=== PATIENT | male | born 1975 | race Caucasian/White ===

== ENCOUNTER 2017-03-09 11:07 | Inpatient (IN) | payer MEDICAID ==
[~2017-03-09] VITALS: Ht 167.6 cm; Wt 82.3 kg
[2017-03-09 11:27] LABS: GLUCOSE,POINT OF CARE 99 MG/DL (70-110)
[2017-03-09] MEDS ORDERED: MELO-107 PO (12:14)
[2017-03-09 12:38] LABS: BASOPHILS # (AUTO) 0.04 K/uL (0.00-0.20); BASOPHILS % (AUTO) 0.5 % (0.0-2.0); EOSINOPHILS # (AUTO) 0.19 K/uL (0.00-0.70); EOSINOPHILS % (AUTO) 2.16 % (1.0-6.0); HEMATOCRIT 45.4 % (41-53); LYMPHOCYTES # (AUTO) 2.2 K/uL (1.0-4.8); LYMPHOCYTES % (AUTO) 24.8 % (22.0-44.0); MEAN CORPUSCULAR HEMOGLOBIN 30.8 pg (26.0-34.0); MEAN CORPUSCULAR VOLUME 93 fL (80-100); MONOCYTES # (AUTO) 0.4 K/uL (0.1-1.0); NEUTROPHILS # (AUTO) 5.9 K/uL (1.8-7.7); NEUTROPHILS % (AUTO) 67.6 % (40.0-70.0); PLATELET COUNT (AUTO) 265 K/uL (150-450); RED BLOOD CELL COUNT(AUTO) 4.87 MIL/uL (4.50-5.90); WHITE BLOOD COUNT (AUTO) 8.7 K/uL (4.5-11.0)
[2017-03-09 12:52] LABS: ANION GAP 10 mmol/L (8-16); CALCIUM, TOTAL 9.1 mg/dL (8.8-10.5); CARBON DIOXIDE 27 mmol/L (22-29); CHLORIDE 106 mmol/L (98-107); CREATININE 1.03 mg/dL (0.60-1.30); GLOMERULAR FILTR. RATE CALC > 60 mL/min (>60); POTASSIUM 3.8 mmol/L (3.5-5.1); SODIUM SERUM 143 mmol/L (136-145); UREA NITROGEN, BLOOD 8 mg/dL (7-18)
[2017-03-09 12:56] LABS: ALANINE AMINOTRANSFERASE 32 U/L (12-78); ALBUMIN 3.9 g/dL (3.4-5.0); ASPARTATE AMINOTRANSFERASE 15 U/L (15-37); BILIRUBIN,TOTAL 0.1 mg/dL (0.1-1.0); TOTAL PROTEIN, SERUM 7.5 g/dL (6.4-8.2)
[2017-03-09] MEDS ORDERED: ZOLPIDEM TARTRATE 10 MG TABLET PO PRN (13:45)
[2017-03-09] MEDS ORDERED: HALOPERIDOL 5 MG TABLET PO PRN (13:45)
[2017-03-09 16:38] LABS: CHOL/HDL RATIO 6.8 (4.2-7.3); THYROID STIMULATING HORMONE 0.51 uIU/mL (0.36-3.74)
[2017-03-09 20:44] VITALS: BP 117/69
[2017-03-09] MEDS ORDERED: INFLUENZA VIRUS VACCINE QVS 2017-18 (3YR+)/PF 60 MCG/0.5 ML SYRINGE IM ONE (21:15)
[2017-03-10 08:00] VITALS: BP 143/87
[2017-03-10] MEDS: SERTRALINE HCL 50 MG TABLET PO SCH (09:00)
[2017-03-10] MEDS: NICOTINE 21 MG/24 HOUR PATCH TD SCH (09:00)
[2017-03-10] MEDS ORDERED: ALBUTEROL SULFATE HFA 90 MCG/PUFF 8 GM INHALER IH PRN (13:00)
[2017-03-10 16:51] VITALS: BP 119/73
[2017-03-11] MEDS: SERTRALINE HCL 50 MG TABLET PO SCH ×2 (09:00→09:30)
[2017-03-11] MEDS: NICOTINE 21 MG/24 HOUR PATCH TD SCH ×2 (09:00→09:30)
[2017-03-11 16:10] VITALS: BP 114/67
[2017-03-11] MEDS: NAPROXEN 375 MG TABLET PO PRN (16:10)
[2017-03-12] MEDS: PARoxetine HCL 20 MG TABLET PO SCH (08:58)
[2017-03-12] MEDS: NICOTINE 21 MG/24 HOUR PATCH TD SCH (09:00)
[2017-03-12] MEDS: MELOXICAM 7.5 MG TABLET PO PRN (10:55)
[2017-03-12 20:00] VITALS: BP 111/74
[2017-03-13] MEDS: NICOTINE 21 MG/24 HOUR PATCH TD SCH (09:00)
[2017-03-13 09:01] VITALS: BP 109/56
[2017-03-13] MEDS: PARoxetine HCL 20 MG TABLET PO SCH (09:49)
[2017-03-13 16:30] VITALS: BP 128/64
[2017-03-13] MEDS: LORazepam 2 MG TABLET PO PRN (18:54)
[2017-03-14] MEDS: MELOXICAM 7.5 MG TABLET PO PRN (06:57)
[2017-03-14 07:57] VITALS: BP 100/60
[2017-03-14 08:15] VITALS: BP 100/60
[2017-03-14] MEDS: PARoxetine HCL 20 MG TABLET PO SCH (08:48)
[2017-03-14] MEDS: NICOTINE 21 MG/24 HOUR PATCH TD SCH (08:51)
[2017-03-14 16:15] VITALS: BP 116/73
[2017-03-14] MEDS: LORazepam 2 MG TABLET PO PRN (16:48)
[2017-03-14 20:38] VITALS: BP 119/81
[2017-03-14] MEDS: NAPROXEN 375 MG TABLET PO PRN (20:38)
[2017-03-15 08:36] VITALS: BP 113/64
[2017-03-15] MEDS: NICOTINE 21 MG/24 HOUR PATCH TD SCH (09:00)
[2017-03-15] MEDS: PARoxetine HCL 20 MG TABLET PO SCH (09:31)
[2017-03-15] MEDS ORDERED: PARO20TA24 PO (11:08)
[2017-03-15] MEDS ORDERED: HALO5 PO (11:09)
[2017-03-15] MEDS ORDERED: LORA2TAB2 PO (11:10)
== END 2017-03-15 14:15 | disposition home or self-care (01) | DRG 751 ==
LOC: EEVIPCON 11:09 → EMS 11:09 → 3EI 19:18
DX: F33.2 Major depressive disorder, recurrent severe without psychotic features (principal); R45.851 Suicidal ideations; R45.850 Homicidal ideations; F43.10 Post-traumatic stress disorder, unspecified; F17.210 Nicotine dependence, cigarettes, uncomplicated; M17.0 Bilateral primary osteoarthritis of knee; J44.9 Chronic obstructive pulmonary disease, unspecified; Z28.21 Immunization not carried out because of patient refusal; Z79.899 Other long term (current) drug therapy; Z83.3 Family history of diabetes mellitus; Z82.49 Family history of ischemic heart disease and other diseases of the circulatory system; Z80.9 Family history of malignant neoplasm, unspecified
CPT/HCPCS: 82962; 84439; 84443; 99285; G0480